=== PATIENT | female | born 1985 | race African-American/Black ===

== ENCOUNTER 2022-12-01 21:54 | Emergency (ER) | payer OTHER ==
[2022-12-01 22:28] VITALS: RESP 18; BMI 34.9
[2022-12-01] MEDS ORDERED: ACETAMINOPHEN 1000 MG/100 ML BAG IVPB ONE (23:34)
[2022-12-02 00:33] LABS: BASO % 0.7 % (0-2.0); EOS % 1.1 % (0-4.5); HEMATOCRIT 37.4 % (32.4-45.2); HEMOGLOBIN 12.6 GM/dL (10.7-15.3); LYMPH % 22.5 % (8-40); MCH 28.5 pg (25.7-33.7); MCHC 33.7 g/dl (32.0-36.0); MEAN CELL VOLUME 84.8 fl (80-96); MEAN PLT VOLUME 7.2 fl (7.5-11.1); MONO % 6.2 % (3.8-10.2); NEUT % 69.5 % (42.8-82.8); PLATELET COUNT 320 10^3/uL (134-434); RBC 4.41 M/mm3 (3.60-5.2); RDW 13.6 % (11.6-15.6); WHITE BLOOD COUNT 10.5 K/mm3 (4.0-10.0)
[2022-12-02 00:41] LABS: POTASSIUM 3.9 mmol/L (3.5-5.1)
[2022-12-02 00:44] LABS: ALBUMIN 3.7 g/dl (3.4-5.0); BLOOD UREA NITROGEN 7.4 mg/dL (7-18); CALCIUM 9.5 mg/dL (8.5-10.1)
[2022-12-02 00:47] LABS: CREATININE 0.5 mg/dL (0.55-1.3)
[2022-12-02 00:49] LABS: BILIRUBIN,TOTAL 0.4 mg/dL (0.2-1)
[2022-12-02] MEDS ORDERED: ACETAMINOPHEN INJECTION 100 ML IVPB ONE (01:14)
[2022-12-02 01:29] LABS: EPI CELLS >36 /uL (0-25.1); HYALINE CASTS 5 /uL (0-3.1); PH,URINE 5.5 (5.0-8.0); URINE APPEARANCE CLOUDY; URINE BACTERIA >9,000 /uL (0-1359); URINE BILIRUBIN 1+ (NEGATIVE); URINE COLOR DK YELLOW; URINE GLUCOSE (UA) NEGATIVE (NEGATIVE); URINE KETONE 1+ (NEGATIVE); URINE LEUK ESTERASE TRACE (NEGATIVE); URINE NITRITE POSITIVE (NEGATIVE); URINE PROTEIN TRACE (NEGATIVE); URINE RBC 20 /uL (0-23.9); URINE WBC 56 /uL (0-25.8)
[2022-12-02 02:04] VITALS: BP 112/79; PULSE 95; TEMP 97.9
[2022-12-02] MEDS ORDERED: CEFTRIAXONE 1 GM/50 ML BAG ONE (02:40)
[2022-12-02 08:46] LABS: URINE CRYSTALS CA OXALATE FEW /hpf
== END 2022-12-02 05:24 | disposition home or self-care (01) ==
LOC: JER 21:54
PROC: 3E033NZ Introduction of Analgesics, Hypnotics, Sedatives into Peripheral Vein, Percutaneous Approach (ICD-10-PCS; principal; 2022-12-01)
PROC: 3E03329 Introduction of Other Anti-infective into Peripheral Vein, Percutaneous Approach (ICD-10-PCS; 2022-12-02)
DX: O23.41 Unspecified infection of urinary tract in pregnancy, first trimester (principal); O20.9 Hemorrhage in early pregnancy, unspecified; O26.891 Other specified pregnancy related conditions, first trimester; R10.11 Right upper quadrant pain; R10.31 Right lower quadrant pain; M54.9 Dorsalgia, unspecified; Z3A.11 11 weeks gestation of pregnancy
CPT/HCPCS: 76705-TC; 76830-TC; 80053; 81003; 83690; 84484; 84702; 84703; 85025; 86850; 86900; 86901; 87086; 87186; 99284-25